=== PATIENT | male | born 1945 | race Caucasian/White ===

== ENCOUNTER 2021-02-01 13:20 | Emergency (ER) | payer MEDICARE, BC ==
[~2021-02-01 13:20] MED LIST: Ondansetron 4 MG/2 ML SDV ONE
[2021-02-01] MEDS ORDERED: Ondansetron 4 MG/2 ML SDV IVPUSH ONE ×2 (13:22→13:54)
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
[2021-02-01] MEDS ORDERED: Ketorolac 30 MG/ML SDV IVPUSH ONE (13:38)
[2021-02-01] MEDS ORDERED: Diphtheria,Pertussis(Acell),Tetanus Vaccine 0.5 ML Syringe IM ONE (14:09)
--- NOTE | 2021-02-01 14:27 | CT ---
Head wo Cont CLINICAL HISTORY: Trauma COMPARISON: None TECHNIQUE: Transverse scans were obtained from the base of the skull through the vertex without IV contrast on a multislice, multidetector CT scanner. Auto dosage reduction and iterative reconstruction techniques employed. FINDINGS: There is some motion artifact. This causes some streak density along the parietal convexities. No focal abnormal parenchymal density is identified. There is no mass effect, hemorrhage, or extraaxial collection. The basal cisterns and sulci over the convexities are prominent. The ventricles are normal for age. Calvarium appears intact IMPRESSION: Limited study due to motion artifact. Age-related atrophy. No acute intracranial process
--- NOTE | 2021-02-01 14:30 | CT ---
Cervical Spine wo Cont CLINICAL HISTORY: Trauma TECHNIQUE: Multiple CT sections were taken through the cervical spine in the transaxial projection. Coronal and sagittal views were reconstructed. Images were viewed at bone as well as soft tissue windows on a digital workstation. Auto dosage reduction and iterative reconstruction techniques employed. FINDINGS: Vertebral body heights are maintained. There is diffuse degenerative disc disease with a company spondylosis of the mid-lower cervical spine. Alignment is maintained. There is some osteoarthritis in the cervical facets. The odontoid and spinous processes are intact. There is uncovertebral joint spurring in the mid and lower cervical spine. 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
--- NOTE | 2021-02-01 14:34 | CT ---
Max Facial Sinus wo Cont : TECHNIQUE: Axial tomographic images were obtained from the upper calvarium through the face, mandible and skull base. CLINICAL HISTORY: Trauma FINDINGS: No significant hematoma is identified. The paranasal sinuses are clear. The bony orbits appear intact. The orbital fat planes are preserved. The zygomatic arches are intact. There is a comminuted displaced fracture of the right mandibular condyle. There is an oblique fracture through the left mandibular ramus extending just below the second molar extending anteriorly. No definite fractures are identified there is moderate dental work causing streak artifact. There are calcifications in the parapharyngeal region which may be calcifications with within tonsillar crypts IMPRESSION: Comminuted displaced fracture of the right mandibular condyle and condylar neck Oblique nondisplaced fracture through the left mandibular ramus
[2021-02-01] MEDS ORDERED: Bacitracin Oint 1 GM U/D Packet TOP ONE (15:10)
[2021-02-01] MEDS ORDERED: Prochlorperazine 10 MG/2 ML SDV IVPUSH ONE (15:10)
--- NOTE | 2021-02-02 09:04 | CR ---
Ankle Min 3V Rt CLINICAL HISTORY: Injury FINDINGS: The soft tissues are swollen over the lateral aspect. There is an oblique slightly displaced fracture of the distal fibula. Ankle mortise is anatomic. Impression: Distal fibular fracture
== END 2021-02-01 17:00 ==
LOC: JP.ED 13:20
DX: S06.0X1A Concussion with loss of consciousness of 30 minutes or less, initial encounter (principal); S02.642A Fracture of ramus of left mandible, initial encounter for closed fracture; S02.611A Fracture of condylar process of right mandible, initial encounter for closed fracture; S82.831A Other fracture of upper and lower end of right fibula, initial encounter for closed fracture; S01.511A Laceration without foreign body of lip, initial encounter; Z23 Encounter for immunization; W22.8XXA Striking against or struck by other objects, initial encounter
CPT/HCPCS: 12011; 70450; 70486; 72125; 73610; 90471; 90715; 96374; 96375; 96376; 99285; J0780; J1885; J2405

== ENCOUNTER 2024-06-19 08:31 | Day surgery (SDC) | payer MEDICARE, BC ==
[2024-06-19 08:54] LABS: HEMATOCRIT 46.2 % (38.4-49.7); HEMOGLOBIN 15.4 g/dL (12.9-16.9); MEAN CORPUSCULAR HEMOGLOBIN 30.3 pg (31.6-35.5); MEAN CORPUSCULAR HGB CONC 33.3 g/dL (31.6-35.5); MEAN CORPUSCULAR VOLUME 90.9 fL (81.4-99.0); RED BLOOD CELL COUNT 5.08 M/uL (4.14-5.76); WHITE BLOOD CELL COUNT,WBC 4.8 K/uL (3.2-11.0)
[2024-06-19] MEDS: Lactated Ringers 1,000 ML IV SCH (08:58)
[2024-06-19] MEDS ORDERED: Dexamethasone 4 MG/ML SDV ONE (09:13)
[2024-06-19] MEDS ORDERED: Ondansetron 4 MG/2 ML SDV ONE (09:13)
[2024-06-19] MEDS ORDERED: Rocuronium 50 MG/5 ML Vial ONE (09:13)
[2024-06-19] MEDS ORDERED: Neostigmine Methylsulfate 10 MG/10 ML MDV ONE (09:13)
[2024-06-19] MEDS ORDERED: Propofol 200 MG/20 ML SDV ONE (09:13)
[2024-06-19] MEDS ORDERED: Glycopyrrolate 0.2 MG/ML 5 ML MDV ONE (09:13)
[2024-06-19] MEDS ORDERED: fentaNYL 250 MCG/5 ML SDV ONE (09:14)
[2024-06-19 09:46] LABS: A/G RATIO 1.2 (1.2-2.2); ALANINE AMINOTRANSFERASE,ALT 33 U/L (12-78); ALKALINE PHOSPHATASE 47 U/L (46-116); ASPARTATE AMNIOTRANSFERASE,AST 23 U/L (15-37); BILIRUBIN TOTAL 0.7 mg/dL (0.2-1.0); BLOOD UREA NITROGEN,BUN 13 mg/dL (7-18); CALCIUM 8.9 mg/dL (8.5-10.1); CARBON DIOXIDE,CO2 29 mmol/L (21-32); CHLORIDE,CL 104 mmol/L (100-108); CREATININE 0.9 mg/dL (0.8-1.3); EST CRCL DRUG DOSING (CG) 70.87 mL/min; ESTIMATED GFR 89 mL/min (>60); GLUCOSE RANDOM 99 mg/dL (74-106); POTASSIUM,K 4.1 mmol/L (3.6-5.2); PROTEIN TOTAL,TP 7.4 g/dL (6.4-8.2); SODIUM,NA 139 mmol/L (140-148)
[2024-06-19 09:50] LABS: ANION GAP 10.1 mmol/L (5.0-14.0)
[2024-06-19] MEDS: metroNIDAZOLE/Normal Saline 500 MG in Premix Bag 1 BAG IV ONE (10:30)
[2024-06-19] MEDS: Bupivacaine 0.5%/EPINEPHrine 1:200,000 50 ML MDV ONE (10:40)
[2024-06-19] MEDS: Ropivacaine 35 ML, dexAMETHasone 8 MG, EPINEPHrine 0.4 MG, Sodium Chloride 0.9% 42.6 ML NERVRT SCH (10:51)
[2024-06-19] MEDS: ceFAZolin 2 GM in Premix Bag 1 BAG IV ONE (10:59)
[2024-06-19] MEDS ORDERED: Ketorolac 30 MG/ML SDV ONE (11:30)
[2024-06-19] MEDS: Acetaminophen/HYDROcodone 325-5 MG Tab PO ONE (12:40)
== END 2024-06-19 15:15 | disposition home or self-care (01) ==
LOC: JP.SDS 08:31
PROVIDERS: ATTEND Surgery
DX: K40.30 Unilateral inguinal hernia, with obstruction, without gangrene, not specified as recurrent (principal); I10 Essential (primary) hypertension; E78.5 Hyperlipidemia, unspecified
CPT/HCPCS: 36415; 80053; 85027; A9270-GY; C1781; J0171; J0690; J1100; J1596; J1836; J1885; J2405; J2704; J2710; J2795; J3010; J3490; J7120